=== PATIENT | female | born 1940 | race Caucasian/White ===

== ENCOUNTER 2017-07-23 15:52 | Emergency (ER) | payer MEDICARE, BC ==
[2017-07-23] MEDS ORDERED: SODIUM CHLORIDE 0.9% 500 ML IV ONE (16:47)
[2017-07-23 17:24] LABS: HEMATOCRIT 37.9 % (35.0-47.0); HEMOGLOBIN 12.6 gm/dl (11.6-16.0); MEAN CELL VOLUME 91.5 fl (81-97); MEAN CORPUSCULAR HEMOGLOBIN 30.4 pg (27-33); MEAN CORPUSCULAR HGB CONC 33.2 g/dl (32-36); MEAN PLATELET VOLUME 9.7 fl (7.4-10.4); PLATELET COUNT 283 K/uL (130-400); RED BLOOD COUNT 4.14 M/uL (3.80-5.40); RED CELL DISTRIBUTION WIDTH 13.3 % (11.5-14.5); WHITE BLOOD COUNT W/O DIFF 8.9 K/uL (4.2-12.2)
[2017-07-23 17:25] LABS: URINE APPEARANCE CLEAR; URINE BILIRUBIN NEGATIVE (NEGATIVE); URINE BLOOD NEGATIVE (NEGATIVE); URINE COLOR YELLOW; URINE GLUCOSE (UA) NEGATIVE (NEGATIVE); URINE KETONE NEGATIVE (NEGATIVE); URINE LEUKOCYTE ESTERASE SMALL (NEGATIVE); URINE NITRITE NEGATIVE (NEGATIVE); URINE PROTEIN NEGATIVE (NEGATIVE); URINE UROBILINOGEN 0.2 E.U./dL (0.20 - 1.00)
[2017-07-23] MEDS ORDERED: PROMETHAZINE HCL 6.25 MG in 0.9 % SODIUM CHLORIDE 100ML 100 ML IVPB ONE (17:29)
[2017-07-23 17:32] LABS: INFLUENZA A NEGATIVE (NEGATIVE); INFLUENZA B NEGATIVE (NEGATIVE)
--- NOTE | 2017-07-23 17:35 | Emergency Department Record ---
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 Onset/Timin -: Minutes(s) Location: Generalized Severity: Mild Quality: Aching Consistency: Constant Improves with: None Worsens with: None Associated Symptoms: Fever/chills, Nausea/vomiting, Myalgias - Alonzo Coma Scale Eye Response: (4) Open spontaneously - Symptoms of Stroke Onset of Symptoms Date: 07/23/17 Onset of Symptoms Time: 14:30 Symptom Onset Unknown: Yes - Related Data Home Medications Medication Instructions Recorded Confirmed Last Taken Diphenhydramine HCl [Allergy] 25 mg PO 07/23/17 Unknown Ezetimibe [Zetia] 10 mg PO DAILY 07/23/17 07/23/17 Unknown Fluticasone Propionate [Flonase] 1 spray EACH NARES DAILY 07/23/17 07/23/17 Unknown Hydrochlorothiazide 25 mg PO DAILY 07/23/17 07/23/17 Unknown Meclizine HCl [Antivert] 25 mg PO 07/23/17 Unknown Simvastatin [Zocor] 10 mg PO DAILY 07/23/17 07/23/17 Unknown Verapamil HCl [Calan Sr] 240 mg PO DAILY 07/23/17 07/23/17 Unknown Previous Rx's Medication Instructions Recorded Ciprofloxacin HCl [Cipro] 500 mg PO Q12HR #14 tablet 07/23/17 Allergies Allergy/AdvReac Type Severity Reaction Status Date / Time No Known Drug Allergies Allergy Verified 07/23/17 16:18 Travel Screening - Travel/Exposure Within Last 30 Days Have you traveled within the last 30 days?: No - Travel/Exposure Within Last Year Have you traveled outside the [place] in the last year?: No - Additonal Travel Details Have you been exposed to anyone with a communicable illness?: No - Travel Symptoms Symptom Screening: Fever (Subjective), Joint & Muscle Aches, Diarrhea, Vomiting Review of Systems Reviewed: No additional complaints except as noted below Constitutional: Reports: As per HPI. Denies: Chills, Fever, Malaise, Night sweats, Weakness, Weight change Eyes: Reports: As per HPI. Denies: Eye discharge, Eye pain, Photophobia, Vision change ENT: Reports: As per HPI. Denies: Congestion, Dental pain, Ear pain, Epistaxis , Hearing loss, Throat pain Respiratory: Reports: As per HPI. Denies: Cough, Dyspnea, Hemoptysis, Stridor, Wheezes Cardiovascular: Reports: As per HPI. Denies: Arrhythmia, Chest pain, Dyspnea on exertion, Edema, Murmurs, Orthopnea, Palpitations, Paroxysmal nocturnal dyspnea, Rheumatic Fever, Syncope Endocrine: Reports: As per HPI. Denies: Fatigue, Heat or cold intolerance, Polydipsia, Polyuria Gastrointestinal: Reports: As per HPI. Denies: Abdominal pain, Constipation, Diarrhea, Hematemesis, Hematochezia, Melena, Nausea, Vomiting Genitourinary: Reports: As per HPI. Denies: Abnormal menses, Discharge, Dyspareunia, Dysuria, Frequency, Hematuria, Incontinence, Retention, Urgency Musculoskeletal: Reports: As per HPI. Denies: Arthralgia, Back pain, Gout, Joint swelling, Myalgia, Neck pain Skin: Reports: As per HPI. Denies: Bruising, Change in color, Change in hair/ nails, Lesions, Pruritus, Rash Neurological: Reports: As per HPI. Denies: Abnormal gait, Confusion, Headache, Numbness, Paresthesias, Seizure, Tingling, Tremors, Vertigo, Weakness Psychiatric: Reports: As per HPI. Denies: Anxiety, Auditory hallucinations, Depression, Homicidal thoughts, Suicidal thoughts, Visual hallucinations Hematological/Lymphatic: Reports: As per HPI. Denies: Anemia, Blood Clots, Easy bleeding, Easy bruising, Swollen glands Past Medical History - SOCIAL HISTORY Smoking Status: Never smoker Alcohol Use: None Drug Use: None - RESPIRATORY Hx Respiratory Disorders: No - CARDIOVASCULAR Hx Cardio Disorders: Yes Hx Hypertension: Yes - NEURO Hx Neuro Disorders: No - GI Hx GI Disorders: No - Hx Genitourinary Disorders: No - ENDOCRINE Hx Endocrine Disorders: No - MUSCULOSKELETAL Hx Musculoskeletal Disorders: No - PSYCH Hx Psych Problems: No - HEMATOLOGY/ONCOLOGY Hx Hematology/Oncology Disorders: No Family Medical History Any Significant Family History?: No Physical Exam - General General Appearance: Alert, Oriented x3, Cooperative, Mild distress - Head Head exam: Normal inspection - Eye Eye exam: Normal appearance, PERRL, EOMI Pupils: Normal accommodation - ENT ENT exam: Normal exam, Mucous membranes moist, Normal external ear exam, Normal orophraynx Ear exam: Normal external inspection. negative: External canal tenderness Nasal Exam: Normal inspection. negative: Discharge, Sinus tenderness Mouth exam: Normal external inspection, Tongue normal Teeth exam: Normal inspection. negative: Dental caries Throat exam: Normal inspection. negative: Tonsillar erythema, Tonsillar exudate - Neck Neck exam: Normal inspection, Full ROM. negative: Tenderness - Respiratory Respiratory exam: Normal lung sounds bilaterally. negative: Respiratory distress - Cardiovascular Cardiovascular Exam: Regular rate, Normal rhythm, Normal heart sounds - GI/Abdominal GI/Abdominal exam: Soft, Normal bowel sounds, Tenderness - Rectal Rectal exam: Deferred - exam: Deferred - Extremities Extremities exam: Normal inspection, Full ROM, Normal capillary refill. negative: Tenderness - Back Back exam: Reports: Normal inspection, Full ROM. Denies: Muscle spasm, Rash noted, Tenderness - Neurological Neurological exam: Alert, Normal gait, Oriented X3, Reflexes normal - Psychiatric Psychiatric exam: Normal affect, Normal mood - Skin Skin exam: Dry, Intact, Normal color, Warm Course Vital Signs 07/23/17 07/23/17 16:04 16:35 Temperature 98.5 F Pulse Rate 84 Respiratory 22 Rate Blood Pressure 171/84 Pulse Ox 100 100 - Reevaluation(s) Reevaluation #1: 07/23/17 18:40 pt feels better Reevaluation #2: 07/23/17 19:29 'i feel so much better' pt wants to go home. pt going to stay with daughter hattie on my advice. pt told to return if she worsened Medical Decision Making - Lab Data Result diagrams: 07/23/17 17:10 07/23/17 17:10 Lab Results 07/23/17 Range/Units 17:10 WBC 8.9 (4.2-12.2) K/uL RBC 4.14 (3.80-5.40) M/uL Hgb 12.6 (11.6-16.0) gm/dl Hct 37.9 (35.0-47.0) % MCV 91.5 (81-97) fl MCH 30.4 (27-33) pg MCHC 33.2 (32-36) g/dl RDW 13.3 (11.5-14.5) % Plt Count 283 (130-400) K/uL MPV 9.7 (7.4-10.4) fl Eosinophils % Not Reportable Basophils % Not Reportable Disposition Disposition: Discharge Clinical Impression: Viral syndrome UTI (urinary tract infection) Qualifiers: Urinary tract infection type: acute cystitis Hematuria presence: without hematuria Qualified Code(s): N30.00 - Acute cystitis without hematuria Disposition: Home, Self-Care Condition: (1) Good Instructions: Viral Syndrome (ED), Urinary Traction Infection in Older Adults ( ED) Additional Instructions: take tylenol every 4 hours as needed. rest. follow up with family doctor tomorrow. return sooner if worse. Prescriptions: Ciprofloxacin HCl [Cipro] 500 mg PO Q12HR #14 tablet Forms: Patient Portal Access Quality - Quality Measures Quality Measures: N/A - Blood Pressure Screening Does Patient Have Any of the Following: No Blood Pressure Classification: Pre-Hypertensive BP Reading Systolic Measurement: 171 Diastolic Measurement: 84 Screening for High Blood Pressure: < Pre-Hypertensive BP, F/U Documented > [ [id number]] Pre-Hypertensive Follow-up Interventions: Follow-up with rescreen every year.
[2017-07-23 17:37] LABS: PLATELET ESTIMATE NORMAL (NORMAL)
[2017-07-23 17:42] LABS: URINE EPITHELIAL CELLS 0 - 2 (FEW); URINE RBC NONE SEEN (NONE SEEN)
[2017-07-23 17:43] LABS: BLOOD UREA NITROGEN 20 mg/dL (8-23); CREATININE 0.9 mg/dL (0.5-0.9); EST GLOMERULAR FILTRATION RATE > 60 mL/min
[2017-07-23 17:44] LABS: TOTAL PROTEIN 7.7 g/dL (6.6-8.7)
[2017-07-23 17:46] LABS: GLUCOSE,RANDOM 110 mg/dL (74-109)
[2017-07-23 17:48] LABS: ALT/SGPT 11 U/L (<33)
[2017-07-23 17:49] LABS: ALB/GLOB RATIO 1.5 (1.1-1.8); ALBUMIN 4.6 g/dL (4.0-5.0); ALKALINE PHOSPHATASE 100 U/L (35-104); AST/SGOT 17 U/L (10.0-35.0)
[2017-07-23] MEDS ORDERED: ACETAMINOPHEN 500 MG TABLET PO ONE (18:21)
[2017-07-23 18:32] LABS: LACTIC ACID 1.7 mmol/L (0.5-2.2)
[2017-07-23] MEDS ORDERED: CIPROFLOXACIN HCL 500 MG TABLET PO ONE (19:33)
--- NOTE | 2017-07-24 08:26 | RADIOLOGY REPORT ---
EXAM: CHEST, TWO VIEWS HISTORY: PATIENT HAS FEVER AND FLU LIKE SYMPTOMS. TECHNIQUE: Two views of the chest are provided without comparison examinations. FINDINGS: Cardiomegaly is noted. Questionable hiatal hernia is noted. Tortuosity and ectasia of the thoracic aorta is noted. There is no radiographic evidence of a focal infiltrate, pleural effusion, or pneumothorax. IMPRESSION: CARDIOMEGALY IS NOTED WITHOUT RADIOGRAPHIC EVIDENCE OF AN ACUTE INTRATHORACIC PROCESS. JOB NUMBER: [id number] [facility] [address] [facility]
== END 2017-07-23 19:50 | disposition home or self-care (01) ==
LOC: ER 15:52
DX: N30.00 Acute cystitis without hematuria (principal); B34.9 Viral infection, unspecified; R11.2 Nausea with vomiting, unspecified; R06.02 Shortness of breath; I10 Essential (primary) hypertension
CPT/HCPCS: 71046; 80053; 81001; 83605; 83690; 85027; 87400; 96374; 99284; J2550

== ENCOUNTER 2018-09-20 12:15 | Inpatient (IN) | payer MEDICARE, BC ==
[2018-09-20] MEDS ORDERED: ONDANSETRON HCL IV 4 MG/2 ML VIAL IVP ONE (12:40)
[2018-09-20] MEDS ORDERED: HYDROMORPHONE HCL 2 MG/ML VIAL IVP ONE ×2 (12:40→15:27)
[2018-09-20 12:54] LABS: BASO % 0.2 % (0-6); GRAN % 64.8 % (47-80); HEMATOCRIT 39.5 % (35.0-47.0); HEMOGLOBIN 13.2 gm/dl (11.6-16.0); LYMPH % 28.9 % (16-45); MEAN CELL VOLUME 90.6 fl (81-97); MEAN CORPUSCULAR HEMOGLOBIN 30.3 pg (27-33); MEAN CORPUSCULAR HGB CONC 33.4 g/dl (32-36); MEAN PLATELET VOLUME 9.5 fl (7.4-10.4); MONO % 5.1 % (0-9); PLATELET COUNT 356 K/uL (130-400); RED BLOOD COUNT 4.36 M/uL (3.80-5.40); RED CELL DISTRIBUTION WIDTH 12.9 % (11.5-14.5); WHITE BLOOD COUNT W/O DIFF 12.4 K/uL (4.2-12.2)
[2018-09-20 13:04] LABS: BLOOD UREA NITROGEN 17 mg/dL (8-23); CREATININE 0.9 mg/dL (0.5-0.9); EST GLOMERULAR FILTRATION RATE > 60 mL/min
[2018-09-20 13:05] LABS: LIPASE 25 U/L (13-60); TOTAL PROTEIN 7.4 g/dL (6.6-8.7)
[2018-09-20 13:07] LABS: GLUCOSE,RANDOM 118 mg/dL (74-109)
[2018-09-20 13:09] LABS: ALT/SGPT 11 U/L (<33)
[2018-09-20 13:10] LABS: ALBUMIN 4.5 g/dL (4.0-5.0); ALKALINE PHOSPHATASE 88 U/L (35-104); AST/SGOT 17 U/L (10.0-35.0); BILIRUBIN,DIRECT < 0.2 mg/dL (0-0.3)
[2018-09-20] MEDS ORDERED: MORPHINE SULFATE 10 MG/ML VIAL IVP ONE (13:14)
[2018-09-20 13:42] LABS: URINE APPEARANCE CLEAR; URINE BILIRUBIN NEGATIVE (NEGATIVE); URINE BLOOD NEGATIVE (NEGATIVE); URINE COLOR YELLOW; URINE GLUCOSE (UA) NEGATIVE (NEGATIVE); URINE KETONE TRACE (NEGATIVE); URINE LEUKOCYTE ESTERASE TRACE (NEGATIVE); URINE NITRITE NEGATIVE (NEGATIVE); URINE PROTEIN NEGATIVE (NEGATIVE); URINE UROBILINOGEN 0.2 E.U./dL (0.20 - 1.00)
[2018-09-20 14:02] LABS: URINE BACTERIA FEW; URINE EPITHELIAL CELLS 0 - 2 (FEW); URINE RBC 0 - 2 (NONE SEEN)
--- NOTE | 2018-09-20 15:13 | Emergency Department Record ---
History of Present Illness - General Chief Complaint: Abdominal Pain Stated Complaint: ABDOMINAL PAIN Time Seen by Provider: 09/20/18 12:26 Source: Patient Mode of Arrival: Ambulatory Limitations: No limitations - History of Present Illness Initial Comments: pt had a sudden onset of rlq ap that is severe at 4am. she has no v/c/d. she had a normal bm yesterday. the pain waxes and wains in intensity. MD Complaint: Abdominal pain -: Minutes(s) Location: RUQ, RLQ Radiation: None Migration to: No migration Severity: Severe Severity scale (1-10): 10 Quality: Sharp Improves With: Nothing Worsens With: Nothing Associated Symptoms: Nausea - Related Data Patient : No Hx Age of Menopause: 46 Home Medications Medication Instructions Recorded Confirmed Last Taken Aspirin/Acetaminophen/Caffeine 1 each PO ASDIR 09/20/18 09/20/18 Unknown [Excedrin Migraine Caplet] Calcium Carbonate [Calcium] 600 mg PO DAILY 09/20/18 09/20/18 09/20/18 Cholecalciferol (Vitamin D3) 2,000 unit PO DAILY 09/20/18 09/20/18 09/20/18 [Vitamin D3] Clonidine HCl 0.1 mg PO ASDIR 09/20/18 09/20/18 Unknown Losartan Potassium 25 mg PO DAILY 09/20/18 09/20/18 09/20/18 Meclizine HCl [Antivert] 12.5 mg PO ASDIR 09/20/18 09/20/18 Unknown Allergies Allergy/AdvReac Type Severity Reaction Status Date / Time No Known Drug Allergies Allergy Verified 09/20/18 12:23 Travel Screening - Travel/Exposure Within Last 30 Days Have you traveled within the last 30 days?: No Review of Systems Reviewed: No additional complaints except as noted below Constitutional: Reports: As per HPI. Denies: Chills, Fever, Malaise, Night sweats, Weakness, Weight change Eyes: Reports: As per HPI. Denies: Eye discharge, Eye pain, Photophobia, Vision change ENT: Reports: As per HPI. Denies: Congestion, Dental pain, Ear pain, Epistaxis , Hearing loss, Throat pain Respiratory: Reports: As per HPI. Denies: Cough, Dyspnea, Hemoptysis, Stridor, Wheezes Cardiovascular: Reports: As per HPI. Denies: Arrhythmia, Chest pain, Dyspnea on exertion, Edema, Murmurs, Orthopnea, Palpitations, Paroxysmal nocturnal dyspnea, Rheumatic Fever, Syncope Endocrine: Reports: As per HPI. Denies: Fatigue, Heat or cold intolerance, Polydipsia, Polyuria Gastrointestinal: Reports: As per HPI, Abdominal pain, Nausea. Denies: Constipation, Diarrhea, Hematemesis, Hematochezia, Melena, Vomiting Genitourinary: Reports: As per HPI. Denies: Abnormal menses, Discharge, Dyspareunia, Dysuria, Frequency, Hematuria, Incontinence, Retention, Urgency Musculoskeletal: Reports: As per HPI. Denies: Arthralgia, Back pain, Gout, Joint swelling, Myalgia, Neck pain Skin: Reports: As per HPI. Denies: Bruising, Change in color, Change in hair/ nails, Lesions, Pruritus, Rash Neurological: Reports: As per HPI. Denies: Abnormal gait, Confusion, Headache, Numbness, Paresthesias, Seizure, Tingling, Tremors, Vertigo, Weakness Psychiatric: Reports: As per HPI. Denies: Anxiety, Auditory hallucinations, Depression, Homicidal thoughts, Suicidal thoughts, Visual hallucinations Hematological/Lymphatic: Reports: As per HPI. Denies: Anemia, Blood Clots, Easy bleeding, Easy bruising, Swollen glands Past Medical History - SOCIAL HISTORY Smoking Status: Never smoker Alcohol Use: None Drug Use: None - RESPIRATORY Hx Respiratory Disorders: No - CARDIOVASCULAR Hx Cardio Disorders: Yes Hx Hypertension: Yes - NEURO Hx Neuro Disorders: No - GI Hx GI Disorders: No - Hx Genitourinary Disorders: No - ENDOCRINE Hx Endocrine Disorders: No - MUSCULOSKELETAL Hx Musculoskeletal Disorders: No - PSYCH Hx Psych Problems: No - HEMATOLOGY/ONCOLOGY Hx Hematology/Oncology Disorders: No Family Medical History Any Significant Family History?: No Physical Exam - General General Appearance: Alert, Oriented x3, Cooperative, Moderate distress - Head Head exam: Normal inspection - Eye Eye exam: Normal appearance, PERRL, EOMI Pupils: Normal accommodation - ENT ENT exam: Normal exam, Mucous membranes moist, Normal external ear exam, Normal orophraynx Ear exam: Normal external inspection. negative: External canal tenderness Nasal Exam: Normal inspection. negative: Discharge, Sinus tenderness Mouth exam: Normal external inspection, Tongue normal Teeth exam: Normal inspection. negative: Dental caries Throat exam: Normal inspection. negative: Tonsillar erythema, Tonsillar exudate - Neck Neck exam: Normal inspection, Full ROM. negative: Tenderness - Respiratory Respiratory exam: Normal lung sounds bilaterally. negative: Respiratory distress - Cardiovascular Cardiovascular Exam: Regular rate, Normal rhythm, Normal heart sounds - GI/Abdominal GI/Abdominal exam: Soft, Normal bowel sounds. negative: Tenderness - Rectal Rectal exam: Deferred - exam: Deferred - Extremities Extremities exam: Normal inspection, Full ROM, Normal capillary refill. negative: Tenderness - Back Back exam: Reports: Normal inspection, Full ROM. Denies: Muscle spasm, Rash noted, Tenderness - Neurological Neurological exam: Alert, CN II-XII intact, Normal gait, Oriented X3 - Psychiatric Psychiatric exam: Normal affect, Normal mood - Skin Skin exam: Dry, Intact, Normal color, Warm Course Vital Signs 09/20/18 09/20/18 09/20/18 12:18 13:15 14:33 Temperature 97.3 F L Pulse Rate 89 Pulse Rate [ 81 75 Pulse Ox Probe] Respiratory 20 24 20 Rate Blood Pressure 181/111 Blood Pressure 190/91 160/67 [Right Arm] Pulse Ox 96 100 100 - Reevaluation(s) Reevaluation #1: 09/20/18 15:14 ct shows ileus vs sbo and possible duodenitis Medical Decision Making - Lab Data Result diagrams: 09/20/18 12:25 09/20/18 12:25 Lab Results 09/20/18 09/20/18 09/20/18 Range/Units 12:25 12:25 12:25 WBC 12.4 H (4.2-12.2) K/uL RBC 4.36 (3.80-5.40) M/uL Hgb 13.2 (11.6-16.0) gm/dl Hct 39.5 (35.0-47.0) % MCV 90.6 (81-97) fl MCH 30.3 (27-33) pg MCHC 33.4 (32-36) g/dl RDW 12.9 (11.5-14.5) % Plt Count 356 (130-400) K/uL MPV 9.5 (7.4-10.4) fl Gran % 64.8 (47-80) % Lymphocytes % 28.9 (16-45) % Monocytes % 5.1 (0-9) % Eosinophils % 1.0 (0-6) % Basophils % 0.2 (0-6) % Sodium 133 L (136-145) mmol/L Potassium 3.6 (3.4-4.5) mmol/L Chloride 95 L (98-107) mmol/L Carbon Dioxide 23.0 (22-29) mmol/L Anion Gap 15.0 (7-16) BUN 17 (8-23) mg/dL Creatinine 0.9 (0.5-0.9) mg/dL Estimated GFR > 60 mL/min Random Glucose 118 H (74-109) mg/dL Lactic Acid 1.6 (0.5-2.2) mmol/L Calcium 9.9 (8.8-10.2) mg/dL Total Bilirubin 0.50 (0.2-1.0) mg/dL Direct Bilirubin < 0.2 (0-0.3) mg/dL AST 17 (10.0-35.0) U/L ALT 11 (<33) U/L Alkaline Phosphatase 88 (35-104) U/L Total Protein 7.4 (6.6-8.7) g/dL Albumin 4.5 (4.0-5.0) g/dL Lipase 25 (13-60) U/L Urine Color Urine Appearance Urine pH (5.0-8.0) Ur Specific Calvin (1.002-1.030) Urine Protein (NEGATIVE) Urine Glucose (UA) (NEGATIVE) Urine Ketones (NEGATIVE) Urine Blood (NEGATIVE) Urine Nitrite (NEGATIVE) Urine Bilirubin (NEGATIVE) Urine Urobilinogen (0.20 - 1.00) E.U./dL Ur Leukocyte Esterase (NEGATIVE) Urine RBC (NONE SEEN) Urine WBC (0-2/hpf) Ur Epithelial Cells (FEW) Urine Bacteria 09/20/18 Range/Units 13:35 WBC (4.2-12.2) K/uL RBC (3.80-5.40) M/uL Hgb (11.6-16.0) gm/dl Hct (35.0-47.0) % MCV (81-97) fl MCH (27-33) pg MCHC (32-36) g/dl RDW (11.5-14.5) % Plt Count (130-400) K/uL MPV (7.4-10.4) fl Gran % (47-80) % Lymphocytes % (16-45) % Monocytes % (0-9) % Eosinophils % (0-6) % Basophils % (0-6) % Sodium (136-145) mmol/L Potassium (3.4-4.5) mmol/L Chloride (98-107) mmol/L Carbon Dioxide (22-29) mmol/L Anion Gap (7-16) BUN (8-23) mg/dL Creatinine (0.5-0.9) mg/dL Estimated GFR mL/min Random Glucose (74-109) mg/dL Lactic Acid (0.5-2.2) mmol/L Calcium (8.8-10.2) mg/dL Total Bilirubin (0.2-1.0) mg/dL Direct Bilirubin (0-0.3) mg/dL AST (10.0-35.0) U/L ALT (<33) U/L Alkaline Phosphatase (35-104) U/L Total Protein (6.6-8.7) g/dL Albumin (4.0-5.0) g/dL Lipase (13-60) U/L Urine Color Yellow Urine Appearance Clear Urine pH 8.5 (5.0-8.0) Ur Specific Calvin 1.015 (1.002-1.030) Urine Protein Negative (NEGATIVE) Urine Glucose (UA) Negative (NEGATIVE) Urine Ketones Trace H (NEGATIVE) Urine Blood Negative (NEGATIVE) Urine Nitrite Negative (NEGATIVE) Urine Bilirubin Negative (NEGATIVE) Urine Urobilinogen 0.2 (0.20 - 1.00) E.U./dL Ur Leukocyte Esterase Trace H (NEGATIVE) Urine RBC 0 - 2 (NONE SEEN) Urine WBC 6 - 10 (0-2/hpf) Ur Epithelial Cells 0 - 2 (FEW) Urine Bacteria Few Disposition Disposition: Admit Clinical Impression: SBO (small bowel obstruction), Duodenitis Disposition: Still a Patient at [facility] Decision to Admit: Admit from ER Decision to Admit Date: 09/20/18 Decision to Admit Time: 15:16 Forms: Patient Portal Access Quality - Quality Measures Quality Measures: N/A - Blood Pressure Screening Does Patient Have Any of the Following: Active Dx of HTN Blood Pressure Classification: Hypertensive Reading Systolic Measurement: 181 Diastolic Measurement: 111 Screening for High Blood Pressure: Patient Exclusion, Hx of HTN [G9744]
[2018-09-20] MEDS ORDERED: HYDROMORPHONE HCL 2 MG/ML VIAL IVP PRN (16:22)
[2018-09-20] MEDS ORDERED: ONDANSETRON HCL IV 4 MG/2 ML VIAL IVP PRN (16:22)
[2018-09-20] MEDS ORDERED: CLONIDINE HCL 0.1 MG TABLET PO SCH (16:22)
--- NOTE | 2018-09-20 16:59 | History & Physical ---
History of Present Illness - Date of Service Date of Service for History & Physical: 09/20/18 - History of Present Illness Admitting Diagnosis: sbo, possible duodenitis History of Present Illness: 78 year old female patient presented to ED for evaluation of severe cramping abdominal pain that began in the RUQ. Patient reports some nausea for several days. Denies any vomiting, diarrhea, fever, or urinary symptoms. Patient reports having a normal BM yesterday. Reports the abdominal pain is now generalized. Patient denies history of constipation, SBO, or chronic opioid use. Past medical history includes: HTN, hyperlipidemia, asthma, LBBB, and prolapsed bladder. PCP: Dr. Silverio ED Course: Temp 97.3F, HR 89, RR 20, BP 190/91, Pulse ox 96% CT abdomen/pelvis: Ileus vs SBO vs duodenitis WBC 12.4, lactic acid 1.6 UA: trace leuk, trace ketones, WBC 6-10, few bacteria Cipro and Flagyl for duodenitis Spoke with Dr. Mendieta, recommends NPO and continued monitoring Dilaudid 0.5mg prn pain 09/20/18: Patient A&O x 4, resting comfortably in bed. Patient reports mild nausea, generalized abdominal pain with palpation. Patient unable to pass gas. Travel Screening - Travel/Exposure Within Last 30 Days Have you traveled within the last 30 days?: No - Travel/Exposure Within Last Year Have you traveled outside the [place] in the last year?: No - Additonal Travel Details Have you been exposed to anyone with a communicable illness?: No - Travel Symptoms Symptom Screening: None Review of Systems Reviewed: No additional complaints except as noted below Constitutional: Reports: As per HPI. Denies: Chills, Fever, Malaise, Night sweats, Weakness, Weight change Eyes: Reports: As per HPI. Denies: Eye discharge, Eye pain, Photophobia, Vision change ENT: Reports: As per HPI. Denies: Congestion, Dental pain, Ear pain, Epistaxis , Hearing loss, Throat pain Respiratory: Reports: As per HPI. Denies: Cough, Dyspnea, Hemoptysis, Stridor, Wheezes Cardiovascular: Reports: As per HPI. Denies: Arrhythmia, Chest pain, Dyspnea on exertion, Edema, Murmurs, Orthopnea, Palpitations, Paroxysmal nocturnal dyspnea, Rheumatic Fever, Syncope Endocrine: Reports: As per HPI. Denies: Fatigue, Heat or cold intolerance, Polydipsia, Polyuria Gastrointestinal: Reports: As per HPI, Abdominal pain, Nausea. Denies: Constipation, Diarrhea, Hematemesis, Hematochezia, Melena, Vomiting Genitourinary: Reports: As per HPI. Denies: Abnormal menses, Discharge, Dyspareunia, Dysuria, Frequency, Hematuria, Incontinence, Retention, Urgency Musculoskeletal: Reports: As per HPI. Denies: Arthralgia, Back pain, Gout, Joint swelling, Myalgia, Neck pain Skin: Reports: As per HPI. Denies: Bruising, Change in color, Change in hair/ nails, Lesions, Pruritus, Rash Neurological: Reports: As per HPI. Denies: Abnormal gait, Confusion, Headache, Numbness, Paresthesias, Seizure, Tingling, Tremors, Vertigo, Weakness Psychiatric: Reports: As per HPI. Denies: Anxiety, Auditory hallucinations, Depression, Homicidal thoughts, Suicidal thoughts, Visual hallucinations Hematological/Lymphatic: Reports: As per HPI. Denies: Anemia, Blood Clots, Easy bleeding, Easy bruising, Swollen glands Past Medical History - SOCIAL HISTORY Smoking Status: Never smoker Alcohol Use: None Drug Use: None - RESPIRATORY Hx Respiratory Disorders: No - CARDIOVASCULAR Hx Cardio Disorders: Yes Hx Hypertension: Yes - NEURO Hx Neuro Disorders: No - GI Hx GI Disorders: No - Hx Genitourinary Disorders: No - ENDOCRINE Hx Endocrine Disorders: No - MUSCULOSKELETAL Hx Musculoskeletal Disorders: No - PSYCH Hx Psych Problems: No - HEMATOLOGY/ONCOLOGY Hx Hematology/Oncology Disorders: No Family Medical History Any Significant Family History?: No H&P Meds/Allergies - Allergies Allergies: Allergies Allergy/AdvReac Type Severity Reaction Status Date / Time No Known Drug Allergies Allergy Verified 09/20/18 12:23 - Home Medications Home Medications Medication Instructions Recorded Confirmed Last Taken Aspirin/Acetaminophen/Caffeine 1 each PO ASDIR 09/20/18 09/20/18 Unknown [Excedrin Migraine Caplet] Calcium Carbonate [Calcium] 600 mg PO DAILY 09/20/18 09/20/18 09/20/18 Cholecalciferol (Vitamin D3) 2,000 unit PO DAILY 09/20/18 09/20/18 09/20/18 [Vitamin D3] Clonidine HCl 0.1 mg PO ASDIR 09/20/18 09/20/18 Unknown Losartan Potassium 25 mg PO DAILY 09/20/18 09/20/18 09/20/18 Meclizine HCl [Antivert] 12.5 mg PO ASDIR 09/20/18 09/20/18 Unknown - Active Medications Active Medications: Current Medications Clonidine HCl (Catapres) 0.1 mg PO ASDIR [facility] Ezetimibe (Zetia) 10 mg PO DAILY [facility] Hydrochlorothiazide (Hctz 12.5mg) 25 mg PO DAILY [facility] Hydromorphone HCl (Dilaudid) 0.5 mg IVP Q4H PRN PRN Reason: ABDOMINAL PAIN Sodium Chloride () 1,000 mls @ 125 mls/hr IV .Q8H PRN PRN Reason: LARGE VOLUME IV Ciprofloxacin Lactate (Cipro) 400 mg in 200 mls @ 200 mls/hr IVPB Q12H [facility] Stop: 09/25/18 16:23 Metronidazole/Sodium Chloride (Flagyl) 500 mg in 100 mls @ 100 mls/hr IVPB Q8H [facility] Stop: 09/25/18 16:23 Losartan Potassium (Cozaar) 25 mg PO DAILY [facility] Ondansetron HCl (Zofran) 4 mg IVP Q6H PRN PRN Reason: NAUSEA Simvastatin (Zocor) 10 mg PO DAILY [facility] Verapamil HCl (Calan Sr) 240 mg PO DAILY [facility] Physical Exam - Vital Signs Vital Signs: Vital Signs - Last 24 Hrs Temp Pulse Pulse Resp BP BP Pulse Ox 09/20/18 16:20 97.9 F 68 16 185/73 97 09/20/18 14:33 75 20 160/67 100 09/20/18 13:15 81 24 190/91 100 09/20/18 12:18 97.3 F L 89 20 181/111 96 - General General Appearance: Alert, Oriented x3, Cooperative, No acute distress Limitations: No limitations - Head Head exam: Normal inspection - Eye Eye exam: Normal appearance, PERRL, EOMI Pupils: Normal accommodation - ENT ENT exam: Normal exam, Mucous membranes moist, Normal external ear exam, Normal orophraynx Ear exam: Normal external inspection. negative: External canal tenderness Nasal Exam: Normal inspection. negative: Discharge, Sinus tenderness Mouth exam: Normal external inspection, Tongue normal Teeth exam: Normal inspection. negative: Dental caries Throat exam: negative: Tonsillar erythema, Tonsillar exudate - Neck Neck exam: Normal inspection, Full ROM. negative: Tenderness - Respiratory Respiratory exam: Normal lung sounds bilaterally. negative: Respiratory distress - Cardiovascular Cardiovascular Exam: Regular rate, Normal rhythm, Normal heart sounds Peripheral Pulses: 2+: Radial (R), Radial (L), Dorsalis Pedis (R), Dorsalis Pedis (L) - GI/Abdominal GI/Abdominal exam: Soft, Hypoactive bowel sounds, Tenderness (generalized tenderness with palpation) - Rectal Rectal exam: Deferred - exam: Deferred - Extremities Extremities exam: Normal inspection, Full ROM, Normal capillary refill. negative: Tenderness - Back Back exam: Reports: Normal inspection, Full ROM. Denies: Muscle spasm, Rash noted, Tenderness - Neurological Neurological exam: Alert, CN II-XII intact, Normal gait, Oriented X3 - Psychiatric Psychiatric exam: Normal affect, Normal mood - Skin Skin exam: Dry, Intact, Normal color, Warm Results - Labs Result Diagrams: 09/20/18 12:25 09/20/18 12:25 Labs Last 24 Hours: Laboratory Results - last 24 hr 09/20/18 09/20/18 09/20/18 12:25 12:25 12:25 WBC 12.4 H RBC 4.36 Hgb 13.2 Hct 39.5 MCV 90.6 MCH 30.3 MCHC 33.4 RDW 12.9 Plt Count 356 MPV 9.5 Gran % 64.8 Lymphocytes % 28.9 Monocytes % 5.1 Eosinophils % 1.0 Basophils % 0.2 Sodium 133 L Potassium 3.6 Chloride 95 L Carbon Dioxide 23.0 Anion Gap 15.0 BUN 17 Creatinine 0.9 Estimated GFR > 60 Random Glucose 118 H Lactic Acid 1.6 Calcium 9.9 Total Bilirubin 0.50 Direct Bilirubin < 0.2 AST 17 ALT 11 Alkaline Phosphatase 88 Total Protein 7.4 Albumin 4.5 Lipase 25 Urine Color Urine Appearance Urine pH Ur Specific [place] Urine Protein Urine Glucose (UA) Urine Ketones Urine Blood Urine Nitrite Urine Bilirubin Urine Urobilinogen Ur Leukocyte Esterase Urine RBC Urine WBC Ur Epithelial Cells Urine Bacteria 09/20/18 13:35 WBC RBC Hgb Hct MCV MCH MCHC RDW Plt Count MPV Gran % Lymphocytes % Monocytes % Eosinophils % Basophils % Sodium Potassium Chloride Carbon Dioxide Anion Gap BUN Creatinine Estimated GFR Random Glucose Lactic Acid Calcium Total Bilirubin Direct Bilirubin AST ALT Alkaline Phosphatase Total Protein Albumin Lipase Urine Color Yellow Urine Appearance Clear Urine pH 8.5 Ur Specific [place] 1.015 Urine Protein Negative Urine Glucose (UA) Negative Urine Ketones Trace H Urine Blood Negative Urine Nitrite Negative Urine Bilirubin Negative Urine Urobilinogen 0.2 Ur Leukocyte Esterase Trace H Urine RBC 0 - 2 Urine WBC 6 - 10 Ur Epithelial Cells 0 - 2 Urine Bacteria Few VTE H&P Assessment - Risk for VTE Risk for VTE: Yes Risk Level: Moderate Risk Assessment Date: 09/20/18 Risk Assessment Time: 16:30 VTE Orders Placed or Will Be Placed: Yes Plan - Inpatient Certification Inpatient Certification: Admit to inpatient care: Based on my medical assessment, after consideration of patient's risk factors (age, co-morbidities and patient presenting symptoms and acuity), I expect that this patient will remain in the hospital greater than or equal to two midnights and that the services needed warrant inpatient care because: Patient Risk Factors: [age, abdominal pain, small bowel obstruction, duodenitis] Estimated length of stay: The patient may reasonably be expected to be discharged or transferred to a hospital within 24-72 hours after admission to [facility]. Services needed: [IV fluids, pain management, nursing services for ADLs, serial abdominal imaging] Post hospital care (if known): [] I certify that my determination is in accordance with my understanding of Medicare requirements for reasonable and necessary inpatient services. 09/20/18 18:34 - Detailed Diagnosis and Plan (1) SBO (small bowel obstruction) Current Visit: Yes Status: Acute Base Code: K56.609 - UNSP INTESTNL OBST, UNSP TO PARTIAL VERSUS COMPLETE OBST Comment: 09/20/18: - Nausea, generalized abdominal pain - CT Abd/pelvis: SBO vs ileus - NPO - NS 0.9% @ 125ml/hr - Zofran prn - Dilaudid 0.5mg q4h prn pain - Repeat abd x-ray tmr (2) Duodenitis Current Visit: Yes Status: Acute Base Code: K29.80 - DUODENITIS WITHOUT BLEEDING Comment: 09/20/18: - CT abd/pelvis indicates potential duodenitis - WBC 12.4, lactic acid 1.6 - Cipro 400mg q12h and flagyl 500mg q8h - IV fluids 125ml/hr - NPO - Repeat CBC tmr (3) DVT prophylaxis Current Visit: Yes Status: Acute Base Code: [id number] - Comment: 09/20/18: - High risk due to age, hospitalization, and illness - Lovenox 40mg SQ daily (4) Full code status Current Visit: Yes Status: Acute Base Code: Z78.9 - OTHER SPECIFIED HEALTH STATUS Comment: 09/20/18: - Patient a full code this admission
[2018-09-20] MEDS: CIPROFLOXACIN LACTATE/D5W 400 MG/200 ML BAG IVPB SCH (17:09)
[2018-09-20] MEDS ORDERED: FLUCONAZOLE 100 MG TABLET PO ONE (18:11)
[2018-09-20] MEDS: METRONIDAZOLE IVPB 500 MG/100 ML BAG IVPB SCH (18:48)
[2018-09-20] MEDS: 0.9 % SODIUM CHLORIDE 1000ML 1,000 ML IV PRN (21:19)
[2018-09-21] MEDS: METRONIDAZOLE IVPB 500 MG/100 ML BAG IVPB SCH ×3 (00:37→16:06)
[2018-09-21] MEDS: CIPROFLOXACIN LACTATE/D5W 400 MG/200 ML BAG IVPB SCH ×2 (04:40→18:33)
--- NOTE | 2018-09-21 05:26 | CT SCAN REPORT ---
EXAM: POST CONTRAST CT OF THE ABDOMEN AND PELVIS HISTORY: RIGHT LOWER QUADRANT ABDOMINAL PAIN, NAUSEA. TECHNIQUE: CT of the abdomen and pelvis was obtained with 100 ml Omnipaque 300 intravenous contrast. Comparison: None. FINDINGS: Likely mild bibasilar scarring. Significant patient motion artifact throughout portions of the abdomen and pelvis. Unremarkable appearance of the liver, gallbladder, adrenal glands, and pancreas. Small calcific granulomatous spleen, otherwise unremarkable. Small bilateral low attenuation renal cortical lesions, overall larger on the right, most likely cysts, otherwise relatively symmetric renal perfusion. No hydronephrosis. Normal appendix. Nondistention with mild wall thickening of the colon from the splenic flexure through the sigmoid. Multiple gas and fluid containing small bowel loops throughout the abdomen, measuring up to 2.5 cm. Questionable mesenteric edema in the right bro- abdomen. The distal aspect of the duodenum second segment appears circumferentially thickened. No significant free fluid. No pneumoperitoneum. The urinary bladder is unremarkable. The uterus is absent. Tiny fat containing umbilical hernia. Aortoiliac arterial access is calcified and tortuous without aneurysm or dissection. Multilevel disk degeneration and facet arthrosis in the lower thoracic and lumbar spine. IMPRESSION: 1. MILDLY PROMINENT SMALL BOWEL LOOPS WITH AIR FLUID LEVELS; COULD REPRESENT ILEUS OR DEVELOPING SMALL BOWEL OBSTRUCTION. 2. CIRCUMFERENTIALLY THICKENED APPEARANCE OF THE DUODENUM SECOND SEGMENT, SUGGESTIVE OF DUODENITIS. CORRELATION WITH ENDOSCOPY MAY BE OF BENEFIT. AT THE JUNCTION OF THE SECOND AND THIRD SEGMENTS OF THE DUODENUM THE BOWEL APPEARS FOCALLY NARROWED. 3. UNDERDISTENDED, MILDLY THICKENED APPEARANCE OF THE COLON FROM THE SPLENIC FLEXURE THROUGH THE SIGMOID COLON, MAY REPRESENT MILD NONSPECIFIC COLITIS. 4. NORMAL APPENDIX. COLONIC DIVERTICULOSIS WITHOUT EVIDENCE OF ACUTE DIVERTICULITIS. 5. THE EXAM IS LIMITED BY PATIENT MOTION ARTIFACT. JOB NUMBER: [id number] [facility]
[2018-09-21 06:48] LABS: BASO % 0.2 % (0-6); EOS % 3.9 % (0-6); HEMATOCRIT 35.7 % (35.0-47.0); HEMOGLOBIN 11.8 gm/dl (11.6-16.0); LYMPH % 31.1 % (16-45); MEAN CELL VOLUME 91.8 fl (81-97); MEAN CORPUSCULAR HEMOGLOBIN 30.3 pg (27-33); MEAN CORPUSCULAR HGB CONC 33.1 g/dl (32-36); MEAN PLATELET VOLUME 9.2 fl (7.4-10.4); MONO % 7.8 % (0-9); PLATELET COUNT 289 K/uL (130-400); RED BLOOD COUNT 3.89 M/uL (3.80-5.40); WHITE BLOOD COUNT W/O DIFF 8.8 K/uL (4.2-12.2)
[2018-09-21] MEDS: 0.9 % SODIUM CHLORIDE 1000ML 1,000 ML IV PRN ×2 (06:58→16:08)
[2018-09-21 07:00] LABS: BLOOD UREA NITROGEN 13 mg/dL (8-23); CREATININE 0.8 mg/dL (0.5-0.9); EST GLOMERULAR FILTRATION RATE > 60 mL/min; GLUCOSE,RANDOM 110 mg/dL (74-109)
[2018-09-21] MEDS ORDERED: ACETAMINOPHEN 500 MG TABLET PO PRN (08:12)
[2018-09-21] MEDS: VERAPAMIL HCL 240 MG TAB ER PO SCH (09:37)
[2018-09-21] MEDS: HYDROCHLOROTHIAZIDE 12.5 MG CAPSULE PO SCH (09:43)
[2018-09-21] MEDS: EZETIMIBE 10 MG TABLET PO SCH (09:44)
[2018-09-21] MEDS: LOSARTAN POTASSIUM 25 MG TABLET PO SCH (09:45)
[2018-09-21] MEDS: SIMVASTATIN 10MG TABLET PO SCH (09:45)
[2018-09-21] MEDS: ENOXAPARIN 40 MG/0.4 ML SYR SQ SCH (09:47)
--- NOTE | 2018-09-21 10:16 | RADIOLOGY REPORT ---
EXAM: ABDOMEN, SINGLE VIEW HISTORY: POSSIBLE SMALL BOWEL OBSTRUCTION, FOLLOW-UP. TECHNIQUE: A single frontal view of the abdomen was obtained. Comparison: CT of the abdomen and pelvis 09/20/18. FINDINGS: A single minimally distended gas filled segment of small bowel was seen in the left can-abdomen. There is a moderate volume of stool throughout the colon. No visible pneumoperitoneum on supine examination. Degenerative changes in the lumbar spine with lumbar dextrocurvature. IMPRESSION: A NONSPECIFIC GAS CONTAINING BORDERLINE DISTENDED SMALL BOWEL LOOP SEEN IN THE LEFT CAN-ABDOMEN, NO APPRECIABLE PROGRESSION FROM COMPARISON CT. JOB NUMBER: [id number] [facility]
--- NOTE | 2018-09-21 10:28 | Physician Progress Note ---
Subjective - Date Date of Physician Progress Note: 09/21/18 - Subjective Subjective Comment: The patient is awake, alert and oriented this morning. She says that her pain has gone away but she feels a little nauseated. She has had one bowel movement this morning which she says was well formed. Objective - Vital Signs Vital Signs: Vital Signs - Last 24 Hrs Temp Pulse Pulse Resp BP BP BP 09/21/18 09:27 56 L 14 146/70 09/21/18 08:48 18 09/21/18 03:47 97.6 F 65 20 147/72 09/20/18 22:00 98.1 F 57 L 20 131/57 09/20/18 18:00 98.0 F 61 16 144/77 09/20/18 16:20 97.9 F 68 16 185/73 09/20/18 14:33 75 20 160/67 09/20/18 13:15 81 24 190/91 09/20/18 12:18 97.3 F L 89 20 181/111 Pulse Ox 09/21/18 09:27 99 09/21/18 08:48 09/21/18 03:47 95 09/20/18 22:00 96 09/20/18 18:00 98 09/20/18 16:20 97 09/20/18 14:33 100 09/20/18 13:15 100 09/20/18 12:18 96 - General General Appearance: Alert, Oriented x3, Cooperative, No acute distress Limitations: No limitations - Head Head exam: Normal inspection - Eye Eye exam: Normal appearance, PERRL, EOMI Pupils: Normal accommodation - ENT ENT exam: Normal exam, Mucous membranes moist, Normal external ear exam, Normal orophraynx Ear exam: Normal external inspection. negative: External canal tenderness Nasal Exam: Normal inspection. negative: Discharge, Sinus tenderness Mouth exam: Normal external inspection, Tongue normal Teeth exam: Normal inspection. negative: Dental caries Throat exam: negative: Tonsillar erythema, Tonsillar exudate - Neck Neck exam: Normal inspection, Full ROM. negative: Tenderness - Respiratory Respiratory exam: Normal lung sounds bilaterally. negative: Respiratory distress - Cardiovascular Cardiovascular Exam: Regular rate, Normal rhythm, Normal heart sounds Peripheral Pulses: 2+: Radial (R), Radial (L), Dorsalis Pedis (R), Dorsalis Pedis (L) - GI/Abdominal GI/Abdominal exam: Soft, Hypoactive bowel sounds, Tenderness (generalized tenderness with palpation) - Rectal Rectal exam: Deferred - exam: Deferred - Extremities Extremities exam: Normal inspection, Full ROM, Normal capillary refill. negative: Tenderness - Back Back exam: Reports: Normal inspection, Full ROM. Denies: Muscle spasm, Rash noted, Tenderness - Neurological Neurological exam: Alert, CN II-XII intact, Normal gait, Oriented X3 - Psychiatric Psychiatric exam: Normal affect, Normal mood - Skin Skin exam: Dry, Intact, Normal color, Warm Assessment and Plan - Assessment and Plan (1) SBO (small bowel obstruction) Current Visit: Yes Status: Acute Base Code: K56.609 - UNSP INTESTNL OBST, UNSP TO PARTIAL VERSUS COMPLETE OBST Comment: 09/21/18: - Improving symptoms overnight. + nausea, - vomiting, - ab pain. - CT Abd/pelvis: SBO, Abd xray: small bowel distension, no progression from CT imaging. - Advance diet slowly starting with clear liquids. - Nacl 0.9% @ 100ml/hr, Zofran prn, Dilaudid 0.5mg q4h prn pain (2) Duodenitis Current Visit: Yes Status: Acute Base Code: K29.80 - DUODENITIS WITHOUT BLEEDING Comment: 09/21/18: - CT abd/pelvis indicates potential duodenitis - WBC 12.4 --> 8.8 - Cipro 400mg q12h and flagyl 500mg q8h - IV fluids 125ml/hr - Advance diet to clear liquids, recheck CBC w/ diff (3) DVT prophylaxis Current Visit: Yes Status: Acute Base Code: [id number] - Comment: 09/21/18: - High risk due to age, hospitalization, and illness - Lovenox 40mg SQ daily (4) Full code status Current Visit: Yes Status: Acute Base Code: Z78.9 - OTHER SPECIFIED HEALTH STATUS Comment: 09/21/18: - Patient a full code this admission - Disposition Disposition: Pt improving, we will cont to monitor and advance diet today. Results - Labs Result Diagrams: 09/21/18 06:28 09/21/18 06:28 Labs Last 24 Hours: Laboratory Results - last 24 hr 09/20/18 09/20/18 09/20/18 12:25 12:25 12:25 WBC 12.4 H RBC 4.36 Hgb 13.2 Hct 39.5 MCV 90.6 MCH 30.3 MCHC 33.4 RDW 12.9 Plt Count 356 MPV 9.5 Gran % 64.8 Lymphocytes % 28.9 Monocytes % 5.1 Eosinophils % 1.0 Basophils % 0.2 Sodium 133 L Potassium 3.6 Chloride 95 L Carbon Dioxide 23.0 Anion Gap 15.0 BUN 17 Creatinine 0.9 Estimated GFR > 60 Random Glucose 118 H Lactic Acid 1.6 Calcium 9.9 Total Bilirubin 0.50 Direct Bilirubin < 0.2 AST 17 ALT 11 Alkaline Phosphatase 88 Total Protein 7.4 Albumin 4.5 Lipase 25 Urine Color Urine Appearance Urine pH Ur Specific [place] Urine Protein Urine Glucose (UA) Urine Ketones Urine Blood Urine Nitrite Urine Bilirubin Urine Urobilinogen Ur Leukocyte Esterase Urine RBC Urine WBC Ur Epithelial Cells Urine Bacteria 09/20/18 09/21/18 09/21/18 13:35 06:28 06:28 WBC 8.8 RBC 3.89 Hgb 11.8 Hct 35.7 MCV 91.8 MCH 30.3 MCHC 33.1 RDW 13.0 Plt Count 289 MPV 9.2 Gran % 57.0 Lymphocytes % 31.1 Monocytes % 7.8 Eosinophils % 3.9 Basophils % 0.2 Sodium 134 L Potassium 3.5 Chloride 100 Carbon Dioxide 22.0 Anion Gap 12.0 BUN 13 Creatinine 0.8 Estimated GFR > 60 Random Glucose 110 H Lactic Acid Calcium 8.9 Total Bilirubin Direct Bilirubin AST ALT Alkaline Phosphatase Total Protein Albumin Lipase Urine Color Yellow Urine Appearance Clear Urine pH 8.5 Ur Specific [place] 1.015 Urine Protein Negative Urine Glucose (UA) Negative Urine Ketones Trace H Urine Blood Negative Urine Nitrite Negative Urine Bilirubin Negative Urine Urobilinogen 0.2 Ur Leukocyte Esterase Trace H Urine RBC 0 - 2 Urine WBC 6 - 10 Ur Epithelial Cells 0 - 2 Urine Bacteria Few DVT/PE Assessment - Risk for VTE Risk for VTE: No Risk Level: Moderate Risk Assessment Date: 09/20/18 Risk Assessment Time: 16:30 VTE Orders Placed or Will Be Placed: Yes - Active Medicaitons Current Medications: Current Medications Acetaminophen (Tylenol 500mg Tab) 1,000 mg PO Q8H PRN PRN Reason: PAIN - MILD TO MODERATE (1-7) Last Admin: 09/21/18 08:20 Dose: 1,000 mg Clonidine HCl (Catapres) 0.1 mg PO ASDIR [facility] Last Admin: 09/20/18 17:09 Dose: 0.1 mg Ezetimibe (Zetia) 10 mg PO DAILY [facility] Last Admin: 09/21/18 09:44 Dose: 10 mg Enoxaparin Sodium (Lovenox) 40 mg SQ DAILY [facility] Last Admin: 09/21/18 09:47 Dose: 40 mg Hydrochlorothiazide (Hctz 12.5mg) 25 mg PO DAILY [facility] Last Admin: 09/21/18 09:43 Dose: 25 mg Hydromorphone HCl (Dilaudid) 0.5 mg IVP Q4H PRN PRN Reason: ABDOMINAL PAIN Sodium Chloride () 1,000 mls @ 125 mls/hr IV .Q8H PRN PRN Reason: LARGE VOLUME IV Last Admin: 09/21/18 06:58 Dose: 125 mls/hr Ciprofloxacin Lactate (Cipro) 400 mg in 200 mls @ 200 mls/hr IVPB Q12H [facility] Stop: 09/25/18 16:23 Last Infusion: 09/21/18 05:38 Dose: Infused Metronidazole/Sodium Chloride (Flagyl) 500 mg in 100 mls @ 100 mls/hr IVPB Q8H [facility] Stop: 09/25/18 16:23 Last Infusion: 09/21/18 09:40 Dose: Infused Losartan Potassium (Cozaar) 25 mg PO DAILY [facility] Last Admin: 09/21/18 09:45 Dose: 25 mg Ondansetron HCl (Zofran) 4 mg IVP Q6H PRN PRN Reason: NAUSEA Simvastatin (Zocor) 10 mg PO DAILY [facility] Last Admin: 09/21/18 09:45 Dose: 10 mg Verapamil HCl (Calan Sr) 240 mg PO DAILY [facility] Last Admin: 09/21/18 09:37 Dose: Not Given AMI Plan - Labs Result Diagrams: 09/21/18 06:28 09/21/18 06:28
[2018-09-21] MEDS ORDERED: 0.9 % SODIUM CHLORIDE 1000ML 1,000 ML IV PRN (10:34)
[2018-09-22] MEDS: METRONIDAZOLE IVPB 500 MG/100 ML BAG IVPB SCH ×2 (00:44→08:33)
[2018-09-22] MEDS: 0.9 % SODIUM CHLORIDE 1000ML 1,000 ML IV PRN (01:56)
[2018-09-22] MEDS: CIPROFLOXACIN LACTATE/D5W 400 MG/200 ML BAG IVPB SCH (06:01)
[2018-09-22 07:14] LABS: BASO % 0.6 % (0-6); EOS % 5.3 % (0-6); GRAN % 51.3 % (47-80); HEMOGLOBIN 11.5 gm/dl (11.6-16.0); MEAN CELL VOLUME 92.1 fl (81-97); MEAN CORPUSCULAR HGB CONC 32.9 g/dl (32-36); MEAN PLATELET VOLUME 9.3 fl (7.4-10.4); MONO % 6.8 % (0-9); PLATELET COUNT 284 K/uL (130-400); RED CELL DISTRIBUTION WIDTH 12.9 % (11.5-14.5); WHITE BLOOD COUNT W/O DIFF 7.2 K/uL (4.2-12.2)
[2018-09-22 07:21] LABS: MEAN CORPUSCULAR HEMOGLOBIN 30.2 pg (27-33)
[2018-09-22 07:31] LABS: ALB/GLOB RATIO 1.5 (1.1-1.8); ALBUMIN 3.5 g/dL (4.0-5.0); ALKALINE PHOSPHATASE 66 U/L (35-104); ALT/SGPT 9 U/L (<33); AST/SGOT 18 U/L (10.0-35.0); BLOOD UREA NITROGEN 7 mg/dL (8-23); CREATININE 0.8 mg/dL (0.5-0.9); EST GLOMERULAR FILTRATION RATE > 60 mL/min; GLUCOSE,RANDOM 125 mg/dL (74-109); TOTAL PROTEIN 5.8 g/dL (6.6-8.7)
--- NOTE | 2018-09-22 10:07 | Physician Progress Note ---
Subjective - Date Date of Physician Progress Note: 09/22/18 - Subjective Subjective Comment: The patient has improved this morning and has been able to tolerate clear and fool liquids. She denies abdominal pain, nausea or vomiting. States that she has not had a bowel movement this morning but yesterday her movement was minimal. Objective - Vital Signs Vital Signs: Vital Signs - Last 24 Hrs Temp Pulse Resp BP BP Pulse Ox 09/22/18 09:43 97.0 F L 71 16 172/89 97 09/22/18 06:00 72 20 161/78 97 09/22/18 02:00 83 18 161/84 98 09/21/18 22:00 97.2 F L 57 L 20 164/80 95 09/21/18 18:00 98.2 F 60 16 153/81 94 L 09/21/18 13:53 98.3 F 52 L 18 159/80 96 - General General Appearance: Alert, Oriented x3, Cooperative, No acute distress Limitations: No limitations - Head Head exam: Normal inspection - Eye Eye exam: Normal appearance, PERRL, EOMI Pupils: Normal accommodation - ENT ENT exam: Normal exam, Mucous membranes moist, Normal external ear exam, Normal orophraynx Ear exam: Normal external inspection. negative: External canal tenderness Nasal Exam: Normal inspection. negative: Discharge, Sinus tenderness Mouth exam: Normal external inspection, Tongue normal Teeth exam: Normal inspection. negative: Dental caries Throat exam: negative: Tonsillar erythema, Tonsillar exudate - Neck Neck exam: Normal inspection, Full ROM. negative: Tenderness - Respiratory Respiratory exam: Normal lung sounds bilaterally. negative: Respiratory distress - Cardiovascular Cardiovascular Exam: Regular rate, Normal rhythm, Normal heart sounds Peripheral Pulses: 2+: Radial (R), Radial (L), Dorsalis Pedis (R), Dorsalis Pedis (L) - GI/Abdominal GI/Abdominal exam: Soft, Normal bowel sounds - Rectal Rectal exam: Deferred - exam: Deferred - Extremities Extremities exam: Normal inspection, Full ROM, Normal capillary refill. negative: Tenderness - Back Back exam: Reports: Normal inspection, Full ROM. Denies: Muscle spasm, Rash noted, Tenderness - Neurological Neurological exam: Alert, CN II-XII intact, Normal gait, Oriented X3 - Psychiatric Psychiatric exam: Normal affect, Normal mood - Skin Skin exam: Dry, Intact, Normal color, Warm Assessment and Plan - Assessment and Plan (1) SBO (small bowel obstruction) Current Visit: Yes Status: Acute Base Code: K56.609 - UNSP INTESTNL OBST, UNSP TO PARTIAL VERSUS COMPLETE OBST Comment: 09/22/18: - Improving symptoms overnight. + nausea, - vomiting, - ab pain. - CT Abd/pelvis: SBO, Abd xray: small bowel distension, no progression from CT imaging. - Advance diet slowly starting with clear liquids. - D/c Nacl 0.9% @ 100ml/hr, Continue Zofran prn, Dilaudid 0.5mg q4h prn pain (2) Duodenitis Current Visit: Yes Status: Acute Base Code: K29.80 - DUODENITIS WITHOUT BLEEDING Comment: 09/22/18: - CT abd/pelvis indicates potential duodenitis - Stop abx today, WBC tredning down. - Advance diet to soft diet. (3) DVT prophylaxis Current Visit: Yes Status: Acute Base Code: [id number] - Comment: 09/22/18: - High risk due to age, hospitalization, and illness - Lovenox 40mg SQ daily (4) Full code status Current Visit: Yes Status: Acute Base Code: Z78.9 - OTHER SPECIFIED HEALTH STATUS Comment: 09/22/18: - Patient a full code this admission - Disposition Disposition: Pt improving, we will cont to monitor and advance diet today. Results - Labs Result Diagrams: 09/22/18 06:47 09/22/18 06:47 Labs Last 24 Hours: Laboratory Results - last 24 hr 09/22/18 09/22/18 06:47 06:47 WBC 7.2 RBC 3.80 Hgb 11.5 L Hct 35.0 MCV 92.1 MCH 30.2 MCHC 32.9 RDW 12.9 Plt Count 284 MPV 9.3 Gran % 51.3 Lymphocytes % 36.0 Monocytes % 6.8 Eosinophils % 5.3 Basophils % 0.6 Sodium 136 Potassium 3.5 Chloride 103 Carbon Dioxide 22.0 Anion Gap 11.0 BUN 7 L Creatinine 0.8 Estimated GFR > 60 Random Glucose 125 H Calcium 8.8 Total Bilirubin 0.40 AST 18 ALT 9 Alkaline Phosphatase 66 Total Protein 5.8 L Albumin 3.5 L Globulin 2.3 Albumin/Globulin Ratio 1.5 DVT/PE Assessment - Risk for VTE Risk for VTE: Yes Risk Level: Moderate Risk Assessment Date: 09/20/18 Risk Assessment Time: 16:30 VTE Orders Placed or Will Be Placed: Yes - Active Medicaitons Current Medications: Current Medications Acetaminophen (Tylenol 500mg Tab) 1,000 mg PO Q8H PRN PRN Reason: PAIN - MILD TO MODERATE (1-7) Last Admin: 09/21/18 08:20 Dose: 1,000 mg Ezetimibe (Zetia) 10 mg PO DAILY [facility] Last Admin: 09/21/18 09:44 Dose: 10 mg Enoxaparin Sodium (Lovenox) 40 mg SQ DAILY [facility] Last Admin: 09/21/18 09:47 Dose: 40 mg Hydrochlorothiazide (Hctz 12.5mg) 25 mg PO DAILY [facility] Last Admin: 09/21/18 09:43 Dose: 25 mg Hydromorphone HCl (Dilaudid) 0.5 mg IVP Q4H PRN PRN Reason: ABDOMINAL PAIN Sodium Chloride () 1,000 mls @ 125 mls/hr IV .Q8H PRN PRN Reason: LARGE VOLUME IV Last Admin: 09/22/18 01:56 Dose: 125 mls/hr Sodium Chloride () 1,000 mls @ 100 mls/hr IV .Q10H PRN PRN Reason: LARGE VOLUME IV Ciprofloxacin Lactate (Cipro) 400 mg in 200 mls @ 200 mls/hr IVPB Q12H [facility] Stop: 09/26/18 18:01 Last Infusion: 09/22/18 07:37 Dose: Infused Metronidazole/Sodium Chloride (Flagyl) 500 mg in 100 mls @ 100 mls/hr IVPB Q8H [facility] Stop: 09/26/18 17:01 Last Admin: 09/22/18 08:33 Dose: 100 mls/hr Losartan Potassium (Cozaar) 25 mg PO DAILY [facility] Last Admin: 09/21/18 09:45 Dose: 25 mg Ondansetron HCl (Zofran) 4 mg IVP Q6H PRN PRN Reason: NAUSEA Senna/Docusate Sodium (Senna Plus) 1 each PO DAILY [facility] Simvastatin (Zocor) 10 mg PO DAILY [facility] Last Admin: 09/21/18 09:45 Dose: 10 mg Verapamil HCl (Calan Sr) 240 mg PO DAILY [facility] Last Admin: 09/21/18 09:37 Dose: Not Given AMI Plan - Labs Result Diagrams: 09/22/18 06:47 09/22/18 06:47
[2018-09-22] MEDS ORDERED: SENNOSIDES/DOCUSATE SODIUM UD CAPSULE PO SCH (10:15)
[2018-09-22] MEDS: VERAPAMIL HCL 240 MG TAB ER PO SCH (10:20)
[2018-09-22] MEDS: ENOXAPARIN 40 MG/0.4 ML SYR SQ SCH (10:20)
[2018-09-22] MEDS: HYDROCHLOROTHIAZIDE 12.5 MG CAPSULE PO SCH (10:20)
[2018-09-22] MEDS: EZETIMIBE 10 MG TABLET PO SCH (10:21)
[2018-09-22] MEDS: SIMVASTATIN 10MG TABLET PO SCH (10:21)
[2018-09-22] MEDS: LOSARTAN POTASSIUM 25 MG TABLET PO SCH (10:21)
--- NOTE | 2018-09-22 14:50 | Discharge Summary ---
Providers Discharge Summary Date: 09/22/18 Date of admission: 09/20/18 15:59 Attending physician: DARRYL MANUEL Primary care physician: LEXA CRAFT D.O. Consults: Consult Orders 09/20/18 16:22 Consult NOW Consulting Provider: Rajinder Mendieta Physician Instructions: Reason For Exam: sbo Physical Exam - Vital Signs Vital Signs: Vital Signs - Last 24 Hrs Temp Pulse Resp BP BP Pulse Ox 09/22/18 09:43 97.0 F L 71 16 172/89 97 09/22/18 06:00 72 20 161/78 97 09/22/18 02:00 83 18 161/84 98 09/21/18 22:00 97.2 F L 57 L 20 164/80 95 09/21/18 18:00 98.2 F 60 16 153/81 94 L - General General Appearance: Alert, Oriented x3, Cooperative, No acute distress Limitations: No limitations - Head Head exam: Normal inspection - Eye Eye exam: Normal appearance, PERRL, EOMI Pupils: Normal accommodation - ENT ENT exam: Normal exam, Mucous membranes moist, Normal external ear exam, Normal orophraynx Ear exam: Normal external inspection. negative: External canal tenderness Nasal Exam: Normal inspection. negative: Discharge, Sinus tenderness Mouth exam: Normal external inspection, Tongue normal Teeth exam: Normal inspection. negative: Dental caries Throat exam: negative: Tonsillar erythema, Tonsillar exudate - Neck Neck exam: Normal inspection, Full ROM. negative: Tenderness - Respiratory Respiratory exam: Normal lung sounds bilaterally. negative: Respiratory distress - Cardiovascular Cardiovascular Exam: Regular rate, Normal rhythm, Normal heart sounds Peripheral Pulses: 2+: Radial (R), Radial (L), Dorsalis Pedis (R), Dorsalis Pedis (L) - GI/Abdominal GI/Abdominal exam: Soft, Normal bowel sounds - Rectal Rectal exam: Deferred - exam: Deferred - Extremities Extremities exam: Normal inspection, Full ROM, Normal capillary refill. negative: Tenderness - Back Back exam: Reports: Normal inspection, Full ROM. Denies: Muscle spasm, Rash noted, Tenderness - Neurological Neurological exam: Alert, CN II-XII intact, Normal gait, Oriented X3 - Psychiatric Psychiatric exam: Normal affect, Normal mood - Skin Skin exam: Dry, Intact, Normal color, Warm Hospitalization - Hospitalization Admission Diagnosis: sbo, possible duodenitis - Problem List/Discharge Diagnosis (1) SBO (small bowel obstruction) Status: Acute Base Code: K56.609 - UNSP INTESTNL OBST, UNSP TO PARTIAL VERSUS COMPLETE OBST Comment: 09/22/18: - Improving symptoms overnight. + nausea, - vomiting, - ab pain. - CT Abd/pelvis: SBO, Abd xray: small bowel distension, no progression from CT imaging. - Advance diet slowly starting with clear liquids. - D/c Nacl 0.9% @ 100ml/hr, Continue Zofran prn, Dilaudid 0.5mg q4h prn pain (2) Duodenitis Status: Acute Base Code: K29.80 - DUODENITIS WITHOUT BLEEDING Comment: 09/22/18: - CT abd/pelvis indicates potential duodenitis - Stop abx today, WBC tredning down. - Advance diet to soft diet. (3) DVT prophylaxis Status: Acute Base Code: [id number] - Comment: 09/22/18: - High risk due to age, hospitalization, and illness - Lovenox 40mg SQ daily (4) Full code status Status: Acute Base Code: Z78.9 - OTHER SPECIFIED HEALTH STATUS Comment: 09/22/18: - Patient a full code this admission - Disposition Pt improving, we will cont to monitor and advance diet today. - Hospitalization Course Disposition: Home, Self-Care Hospital Course: 78 year old female patient presented to ED for evaluation of severe cramping abdominal pain that began in the RUQ. Patient reports some nausea for several days. Denies any vomiting, diarrhea, fever, or urinary symptoms. Patient reports having a normal BM yesterday. Reports the abdominal pain is now generalized. Patient denies history of constipation, SBO, or chronic opioid use. Past medical history includes: HTN, hyperlipidemia, asthma, LBBB, and prolapsed bladder. PCP: Dr. Silverio ED Course: Temp 97.3F, HR 89, RR 20, BP 190/91, Pulse ox 96% CT abdomen/pelvis: Ileus vs SBO vs duodenitis WBC 12.4, lactic acid 1.6 UA: trace leuk, trace ketones, WBC 6-10, few bacteria Cipro and Flagyl for duodenitis Spoke with Dr. Mendieta, recommends NPO and continued monitoring Dilaudid 0.5mg prn pain 09/20/18: Patient A&O x 4, resting comfortably in bed. Patient reports mild nausea, generalized abdominal pain with palpation. Patient unable to pass gas. 09/21-09/22: The patient is able to advance diet and tolerate full liquids and soft foods this morning. All labs are within normal limits and the patient is without pain and afebrile. She did have a bowel movement after using Sennokot this afternoon. The patient has been hypertensive but has not had her home medications due to being NPO. These have been resumed and her blood pressure is trending down. On examination this afternoon the patient has no abdominal tenderness, bowel sounds are active and she is hemodynamically stable. She is to follow up with her PCP Dr. Hightower within 3-5 days of discharge. Procedures: Imaging and X-Rays 09/20/18 13:11 ABDOMEN/PELVIS W CONTRAST [CT] Stat 09/21/18 08:00 ABDOMEN 1 VIEW [RAD] Stat Abnormal Labs: Abnormal Lab Results 09/20/18 09/20/18 09/20/18 Range/Units 12:25 12:25 13:35 WBC 12.4 H (4.2-12.2) K/uL Hgb (11.6-16.0) gm/dl Sodium 133 L (136-145) mmol/L Chloride 95 L (98-107) mmol/L BUN (8-23) mg/dL Random Glucose 118 H (74-109) mg/dL Total Protein (6.6-8.7) g/dL Albumin (4.0-5.0) g/dL Urine Ketones Trace H (NEGATIVE) Ur Leukocyte Esterase Trace H (NEGATIVE) 09/21/18 09/22/18 09/22/18 Range/Units 06:28 06:47 06:47 WBC (4.2-12.2) K/uL Hgb 11.5 L (11.6-16.0) gm/dl Sodium 134 L (136-145) mmol/L Chloride (98-107) mmol/L BUN 7 L (8-23) mg/dL Random Glucose 110 H 125 H (74-109) mg/dL Total Protein 5.8 L (6.6-8.7) g/dL Albumin 3.5 L (4.0-5.0) g/dL Urine Ketones (NEGATIVE) Ur Leukocyte Esterase (NEGATIVE) Condition at Discharge: (1) Good Discharge Medications - Discharge Medications Prescriptions: Hydrocodone/Acetaminophen [Early 5-325 Tablet] 1 each PO BID PRN 5 Days #10 tablet PRN Reason: Abdominal Pain Ondansetron [Zofran Odt] 4 mg PO Q8H PRN #7 tab.rapdis PRN Reason: Nausea Sennosides/Docusate Sodium [Senna Plus] 1 each PO DAILY #10 capsule Home Medications: Ambulatory Orders Ezetimibe [Zetia] 10 mg PO DAILY 07/23/17 [Last Taken Unknown] Fluticasone Propionate [Flonase] 1 spray EACH NARES DAILY 07/23/17 [Last Taken 09/20/18] Hydrochlorothiazide [Hctz] 25 mg PO DAILY 07/23/17 [Last Taken 09/20/18] Simvastatin [Zocor] 10 mg PO DAILY 07/23/17 [Last Taken 09/20/18] Verapamil HCl [Calan Sr] 240 mg PO DAILY 07/23/17 [Last Taken 09/20/18] Calcium Carbonate [Calcium] 600 mg PO DAILY 09/20/18 [Last Taken 09/20/18] Cholecalciferol (Vitamin D3) [Vitamin D3] 2,000 unit PO DAILY 09/20/18 [Last Taken 09/20/18] Losartan Potassium 25 mg PO DAILY 09/20/18 [Last Taken 09/20/18] Hydrocodone/Acetaminophen [Early 5-325 Tablet] 1 each PO BID PRN 5 Days #10 tablet 09/22/18 [Last Taken Unknown] Ondansetron [Zofran Odt] 4 mg PO Q8H PRN #7 tab.rapdis 09/22/18 [Last Taken Unknown] Sennosides/Docusate Sodium [Senna Plus] 1 each PO DAILY #10 capsule 09/22/18 [ Last Taken Unknown] Discharge Plan - Discharge Instructions Diet at Discharge: Other (Resume Diet with soft foods. ) Instructions: Bowel Obstruction (DC), Duodenitis (DC) Additional Instructions: 2 Activity: 2 Diet: Resume your diet with soft foods over the next 3 days then advance to a regular diet as tolerated. Make sure to drink plenty of water to remain hydrated. 2 2 Follow Up: Follow up with your PCP Dr. Katja in 3-5 days. 2 2 Additional: [Medications to be used as needed: Early 5/325mg twice daily for pain. Zofran 4mg every 6 hours for nausea and vomiting. Stool softener ( Sennakot), take one tab daily. If you have recurrence of your symptoms please return to the ED. ] Quality Measures - Quality Measures Quality Measures: Advance Directives, Documentation of Current Medications in Medical Record, Elder Maltreatment Screen and Follow-Up Plan, Screening for High Blood Pressure and F/U Documented - Current Medications Quality Measure: Measure #130: Documentation of Current Medications Documentation of Current Medications: <Current Medications Documented/Reviewed> [[id number]] - Blood Pressure Screening Quality Measure: Screening for High Blood Pressure and Follow-Up Documented Does Patient Have Any of the Following: Active Dx of HTN Blood Pressure Classification: Hypertensive Reading Systolic Measurement: 181 Diastolic Measurement: 111 Screening for High Blood Pressure: Patient Exclusion, Hx of HTN [[id number]] - Advance Directives Quality Measure: Measure #47: Care Plan Advance Directives Established: No Advance Directives Information Provided To Patient: Already Provided Advance Directives on File: No Living Will: Yes Power of [employer] Consultant: Yes Power of [employer] Consultant Name: ASHISH BROWN Advance Care Planning: <Care Plan/Decision Maker Documented; Discussed & Documented> [[id number]] - Elder Abuse Suspicion Index Screening: Elder Abuse Suspicion Index Screening Rely on people for bathing, dressing, shopping, banking, etc: No Prevented from getting food, clothes, medication, etc: No Made to feel shamed or threatened by someone: No Forced to sign papers or use money against will: No Feel afraid, touched in ways not wanted or hurt physically: No Poor eye contact, withdrawn, malnourished, cuts or bruises: No Screening Result: Negative result EASI Reference Information: Joshua JAIN, Vinh C, Katie D, Reginald M.Development and validation of a tool to assist physicians identification of elder abuse: The Elder Abuse Suspicion Index (EASI ). Journal of Elder Abuse and Neglect, 2008; 20 (3): 276-300. - Elder Maltreatment Screen Quality Measures: Elder Maltreatment Screen and Follow-Up Plan Elder Maltreatment Screen: <Negative, No Follow-Up Plan Required> [[id number]]
== END 2018-09-22 15:15 | disposition home or self-care (01) | DRG 390 ==
LOC: ER 12:15 → MEDSURG 15:59
PROVIDERS: ADMIT Internal Medicine; ATTEND Internal Medicine
DX: K56.609 Unspecified intestinal obstruction, unspecified as to partial versus complete obstruction (principal); K29.80 Duodenitis without bleeding; R10.32 Left lower quadrant pain; I10 Essential (primary) hypertension; E78.5 Hyperlipidemia, unspecified; J45.909 Unspecified asthma, uncomplicated; I44.7 Left bundle-branch block, unspecified; N81.10 Cystocele, unspecified
CPT/HCPCS: 74018; 74177; 80048; 80053; 80076; 81001; 83605; 83690; 85025; 96374; 96375; 96376; 99223; 99239; 99285; J1650; J2405